=== PATIENT | female | born 1945 | race Caucasian/White ===

== ENCOUNTER → 2020-01-13 | Outpatient (CLI) | payer OTHER | LOC: LAB 14:12 | PROVIDERS: ATTEND Student in an Organized Health Care Education/Training Program | DX: Z01.812 Encounter for preprocedural laboratory examination (principal); Z11.59 Encounter for screening for other viral diseases ==

== ENCOUNTER 2020-01-16 06:44 | Day surgery (SDC) | payer OTHER ==
[~2020-01-16] VITALS: Ht 165.1 cm; Wt 67.6 kg
--- NOTE | ~2020-01-16 | O ---
[facility] [place] [address] OPERATIVE REPORT Name: KARLA ZHOU Room #: 150-5 [facility] M..#: [id number] Admission: 01/16/20 Attend Phys: Chet Meyers MD Discharge: Date of : 47 Report #: [id number] THIS REPORT FOR: cc: [facility] - No family physician/PCP STEPHANIE - No family physician/PCP Chet Meyers MD ~ CC: [facility] physician/PCP Buster Meyers DATE OF SERVICE: 01/16/2020 SURGEON: Chet Meyers MD ASSET PROTECTION DETECTIVE: None. PREOPERATIVE DIAGNOSIS: Bilateral lower lid ectropion. POSTOPERATIVE DIAGNOSIS: Bilateral lower lid ectropion. OPERATION PERFORMED: Bilateral lower lid ectropion repair. ANESTHESIA: Local with IV sedation. COMPLICATIONS: None. INDICATIONS FOR PROCEDURE: This patient has bilateral acquired lower lid ectropion with chronic tearing, keratopathy and discharge. The current procedures are undertaken in order to improve the patient's visual function, lacrimal outflow, and level of comfort. Informed consent was obtained to include but not limit to the risk of loss of vision, bleeding, infection, scarring, failure to improve the problem and need for further surgery. DESCRIPTION OF OPERATION: The patient was taken to the operating room where 2% Xylocaine with epinephrine mixed with equal parts of 0.75% Marcaine with Wydase was administered transcutaneously and transconjunctivally to each lower lid and lateral canthal area. The patient was then prepped and draped in the usual sterile fashion. A Alina clamp was then used to clamp the left lateral canthus following which a sharp canthotomy and cantholysis were performed. The tarsal strip was prepared laterally, removing the lash bearing portion of the redundant lid margin and the redundant tarsal plate. Hemostasis was achieved with a monopolar cautery, as it was throughout the case. The tarsal strip was then secured to the internal portion of the lateral orbital tubercle with two interrupted 5-0 Prolene sutures. The lateral canthal angle was sharply reformed as the subcutaneous structures and the skin were closed with multiple [facility] [address] [place] [address] OPERATIVE REPORT Name: ABELARDOKARLA Berhane Room #: 150-5 [facility]..#: [id number] Admission: 01/16/20 Attend Phys: Chet Meyers MD Discharge: Date of : 47 Report #: [id number] interrupted 6-0 plain gut sutures. Attention was then turned to the right side where the same procedure was performed. The wounds were cleaned and dressed with ophthalmic antibiotic ointment. The patient was then transported to the recovery area, having tolerated the procedure well with no anesthetic or operative complications being noted. By: [id number] Chet Meyers MD /nt
[~2020-01-16 06:44] MED LIST: ALLEGRA ALLERG180 MG PO; BETAPACE AF120 MG PO; CARVEDILOL25 MG PO; COZAAR 25 MG TA25 M1 PO; ELIQUIS5 MG PO; FUROSEMIDE 20 M20 M1 PO; METHIMAZOLE10 MG PO; SPIRONOLACTONE25 MG PO; TESSALON PERLE100 MG PO; ZOCOR 20 MG TAB20 M1 PO
[2020-01-16 08:01] VITALS: BP 114/73
== END 2020-01-16 10:45 | disposition home or self-care (01) ==
LOC: OR 06:44 → TBA 06:52 → OR 10:45
PROVIDERS: ATTEND Ophthalmology
DX: H02.132 Senile ectropion of right lower eyelid (principal); H02.135 Senile ectropion of left lower eyelid; I11.0 Hypertensive heart disease with heart failure; I50.9 Heart failure, unspecified; I48.91 Unspecified atrial fibrillation; Z79.899 Other long term (current) drug therapy; Z98.890 Other specified postprocedural states
CPT/HCPCS: 50010; 50101; 50386; 50398; 51636; 56527; 56531; 62110; 62850; 70005